=== PATIENT | male | born 1945 | race Caucasian/White ===

== ENCOUNTER 2024-03-19 14:59 | Emergency (ER) | payer OTHER, BC ==
[2024-03-19 15:22] VITALS: BP 138/83; PULSE 95; RESP 18; TEMP 98.4; BMI 25.8
== END 2024-03-19 15:45 | disposition home or self-care (01) ==
LOC: FER 14:59
DX: M79.89 Other specified soft tissue disorders (principal)
CPT/HCPCS: 99283-25